=== PATIENT | male | born 1955 | race Caucasian/White ===

== ENCOUNTER 2017-04-13 07:21 | Day surgery (SDC) | payer OTHER ==
[~2017-04-13] VITALS: Ht 188 cm; Wt 121.6 kg
[~2017-04-13 07:21] MED LIST: BAYER CHEWABLE81 MG PO; NIACIN250 M1 PO; XANAX1 MG PO
[2017-04-13 08:14] VITALS: BP 124/79; Ht 188 cm; Wt 121.6 kg
[2017-04-13] MEDS ORDERED: HYDROCODON-ACE1 EAC7 PO (13:07)
== END 2017-04-13 16:10 | disposition home or self-care (01) ==
LOC: D.OPS 07:21 → D.PAN 10:00 → D.OPS 10:00
DX: K82.8 Other specified diseases of gallbladder (principal); E66.01 Morbid (severe) obesity due to excess calories; Z68.34 Body mass index [BMI] 34.0-34.9, adult; Z01.812 Encounter for preprocedural laboratory examination

== ENCOUNTER → 2017-05-27 12:11 | Outpatient (CLI) | payer OTHER ==
[2017-04-13 08:14] VITALS: BMI 34.5
[~2017-05-27 12:11] MED LIST changes: +HYDROCODON-ACE1 EAC7 PO
== END | disposition home or self-care (01) ==
LOC: D.MRI 05-22 09:00
DX: M75.121 Complete rotator cuff tear or rupture of right shoulder, not specified as traumatic (principal); X58.XXXA Exposure to other specified factors, initial encounter; Y93.89 Activity, other specified; Y92.89 Other specified places as the place of occurrence of the external cause